=== PATIENT | male | born 1960 | race Caucasian/White ===

== ENCOUNTER → 2016-11-18 | Outpatient (CLI) | payer BC ==
--- NOTE | 2016-11-18 13:04 | DIAGNOSTIC IMAGING REPORT ---
Brain MRI WITHOUT CONTRAST HISTORY: HEADACHE, CHANGE IN PREVIOUS STABLE PATTERNS TECHNIQUE: Multiplanar multisequence MRI of the brain was performed without the use of contrast. COMPARISON STUDY: None. FINDINGS: There are no areas of restricted diffusion to suggest acute infarction. The midline structures are intact. Mild mucosal thickening within the paranasal sinuses. A few scattered punctate foci of T2 hyperintensity seen within the periventricular and subcortical white matter. These are nonspecific but favor minimal microvascular ischemic change.. The mastoid air cells are clear. The ventricles and sulci are within normal limits for age. There is no mass, hematoma, midline shift. The major vascular flow-voids at the skull base are well maintained. IMPRESSION: No acute intracranial abnormality. Presumed minimal microvascular ischemic change. Electronically signed by: Abbe Pate M.D. 11/18/2016 1:02 PM Dictated Date/Time: 11/18/2016 12:48 PM
== END | disposition home or self-care (01) ==
LOC: C.MRI 11:26
DX: R51 Headache (principal); Z87.820 Personal history of traumatic brain injury

== ENCOUNTER → 2016-11-19 | Outpatient (CLI) | payer BC ==
--- NOTE | 2016-11-19 15:55 | EEG Procedure Note ---
EEG Procedure Note Date of Service Nov 19, 2016. Start / End Times Start Time: 12:40 PM End Time: 1:01 PM Referring Physician Sang Baltazar History This is a 56-year-old male with head trauma and severe headaches. EEG for further evaluation of possible seizure etiology Description This is a 21 electrode EEG with a single channel dedicated to limited EKG. The electrodes were placed in accordance with the International 10-20 system. At the start of the recording the patient was in an awake state. Background was well organized and composed of symmetric mixed alpha and beta frequencies. There was a symmetric well-formed moderate amplitude 8-9 Hz posterior dominant rhythm that was reactive to eye opening and closure. Hyperventilation with good effort produced no abnormalities. Intermittent photic stimulation at various frequencies produced no abnormalities. Sleep was indicated by vertex waves and symmetric sleep spindles. Interpretation This is a normal awake and asleep routine EEG. There was no electrographic seizures or epileptiform discharges. Clinical Correlation A normal EEG does not rule out epilepsy if there is a strong clinical suspicion.
== END | disposition home or self-care (01) ==
LOC: C.NEUR 12:26
DX: G43.909 Migraine, unspecified, not intractable, without status migrainosus (principal); Z87.828 Personal history of other (healed) physical injury and trauma

== ENCOUNTER → 2017-01-17 | Outpatient (CLI) | payer BC ==
--- NOTE | 2017-01-17 15:42 | DIAGNOSTIC IMAGING REPORT ---
LEFT LOWER EXTREMITY ULTRASOUND CLINICAL HISTORY: SUSPECT LIPOMA, SOFT TISSUE MASS COMPARISON STUDY: Left femur radiographs July 11, 2012. TECHNIQUE: Sonography of the posterior left thigh at site of palpable abnormality was performed. FINDINGS: No mass, fluid collection or other sonographic abnormality was identified within the posterior left thigh at site of palpable abnormality. IMPRESSION: No mass or other sonographic abnormality identified within the left thigh at site of palpable abnormality. Electronically signed by: Dequan Hutchins M.D. 01/17/2017 3:41 PM Dictated Date/Time: 01/17/2017 3:39 PM
== END | disposition home or self-care (01) ==
LOC: C.ULTR 15:17
DX: R22.42 Localized swelling, mass and lump, left lower limb (principal)

== ENCOUNTER → 2017-08-15 | Outpatient (CLI) | payer BC, OTHER | END | disposition home or self-care (01) | LOC: C.RDSM 13:00 | PROVIDERS: ATTEND Family Medicine Sports Medicine | DX: M25.561 Pain in right knee (principal) ==